=== PATIENT | male | born 1975 | race Caucasian/White ===

== ENCOUNTER 2019-09-22 21:26 | Emergency (ER) | payer BC ==
[~2019-09-22] VITALS: Ht 188 cm; Wt 86.2 kg
[2019-09-22 21:37] VITALS: BP 138/78
[2019-09-22] MEDS ORDERED: UNABLE MC (21:46)
--- NOTE | 2019-09-22 22:16 | PHYS DOC ---
Past Medical History Past Medical History: Hypertension Past Surgical History: Other Additional Past Surgical Histo: r rotator cuff Alcohol Use: None Drug Use: None Adult General Chief Complaint Chief Complaint: ELBOW PROBLEM HPI HPI Patient is a 44 year old male who presents with hit right elbow on concrete 1 week ago. Patient states he then felt today that it is swollen and red and hot to touch. Patient rates his pain a 5 out of 10 mostly with movement. Review of Systems Review of Systems Musculoskeletal: Denies back pain. Right elbow joint pain [] Integument: Right elbow redness. Denies rash or skin lesions [] All other systems were reviewed and found to be within normal limits, except as documented in this note. Allergies Allergies Allergies Coded Allergies Type Severity Reaction Last Updated Verified No Known Drug Allergies 09/22/19 No Physical Exam Physical Exam Constitutional: Well developed, well nourished, no acute distress, non-toxic appearance. [] Skin: Warm, dry, right elbow erythema, no rash. [] Extremities: No tenderness, no cyanosis, no clubbing, ROM intact, right elbow 2+ edema. [] Neurologic: Alert and oriented X 3, normal motor function, normal sensory function, no focal deficits noted. [] Psychologic: Affect normal, judgement normal, mood normal. [] Current Patient Data Vital Signs Vital Signs Date Time Temp Pulse Resp B/P (MAP) Pulse Ox O2 Delivery O2 Flow Rate FiO2 09/22/19 21:37 98.1 101 20 138/78 (98) 97 Room Air 98.1 EKG EKG [] Radiology/Procedures Radiology/Procedures [] Course & Med Decision Making Course & Med Decision Making No tenderness to palpation. Elbow is 2+ swelling over the joint and reddened. Patient is extending and bending the joint without issue. ROM intact. Patient states just sitting there, there is no pain but when he uses it and moves the joint is a 5 out of 10. Afebrile. There is no abrasion or open wound on the elbow. I have consulted with Dr España on this patient. Patient is put in a sling and to call orthopedics tomorrow. Dragon Disclaimer Dragon Disclaimer This electronic medical record was generated, in whole or in part, using a voice recognition dictation system. Departure Departure Impression: Primary Impression: Bursitis Disposition: 01 HOME, SELF-CARE Condition: STABLE Referrals: JENNIFER HARRISON MD (PCP) ANNAMARIE PACHECO MD Patient Instructions: Olecranon Bursitis Additional Instructions: Follow up with Dr Pacheco or your primary care provider especially if you are not getting better after 1-2 weeks or begin to run fevers. Avoid activities that put direct pressure on the elbow and protect the elbow if possible. Scripts Ibuprofen (IBUPROFEN) 600 Mg Tablet 600 MG PO PRN Q6HRS PRN for INFLAMMATION, #20 TAB Prov: ROSSANA ADAM APRN 09/22/19 Hydrocodone/Apap 5-325 (NORCO 5-325 TABLET) 1 Each Tablet 1 TAB PO PRN Q6HRS PRN for PAIN, #10 TAB 0 Refills Prov: ROSSANA ADAM APRN 09/22/19 Cephalexin (KEFLEX) 500 Mg Capsule 500 MG PO QID for 10 Days, #40 CAP Prov: ROSSANA ADAM APRN 09/22/19 Problem Qualifiers Primary Impression: Bursitis Bursitis location: elbow Elbow bursitis location: other elbow bursa Laterality: right Qualified Codes: M70.31 - Other bursitis of elbow, right elbow ROSSANA ADAM APRN Sep 22, 2019 22:16
[2019-09-22] MEDS ORDERED: IBUP-1007 PO (22:25)
[2019-09-22] MEDS ORDERED: HYDR-3164 PO (22:25)
[2019-09-22] MEDS ORDERED: CEPH-264 PO (22:25)
--- NOTE | 2019-09-22 23:13 | RAD ---
Indication: Injury, pain and swelling TECHNIQUE: 3 views of the right elbow COMPARISON: None FINDINGS: No acute fracture or dislocation. Soft tissue swelling along the posterior aspect of the palpable. No joint effusion. Electronically signed by: Kojo Snyder DO (09/22/2019 11:10 PM) [facility]
== END 2019-09-22 23:15 | disposition home or self-care (01) ==
LOC: ER 21:26
DX: M70.31 Other bursitis of elbow, right elbow (principal); I10 Essential (primary) hypertension
CPT/HCPCS: 73080; 99284